=== PATIENT | female | born 1990 | race Caucasian/White ===

== ENCOUNTER 2024-06-13 10:59 | Inpatient (IN) | payer OTHER, SELFPAY ==
[2024-06-13 11:10] VITALS: BP 136/85; BMI 24.5
[2024-06-13] MEDS: LR 1000 IV (11:42)
[2024-06-13] MEDS: PENICILLIN 110 UNITS IV (11:49)
[2024-06-13] MEDS: FENTANYL/BUPIVACAINE 100 EPIDURAL (11:51)
[2024-06-13] MEDS: SUBLIMAZE 100 MCG EPIDURAL (11:51)
[2024-06-13 13:33] LABS: % Basophils 0.3 % (0-2); % Eosinophils 0.2 % (0-6); % Immature Granulocytes 0.5 % (0-0.5); % Lymphocytes 9.5 % (20.5-51.1); % Monocytes 6.8 % (1.7-9.3); % Neutrophils 82.7 % (42.2-75.2); Absolute Immature Granulocytes 0.1 10^3/uL (0-0.05); Absolute Lymphocytes 1.3 10^3/uL (1.2-3.4); Absolute Monocytes 0.9 10^3/uL (0.1-0.6); Absolute Neutrophils 10.9 10^3/uL (1.4-6.5); Hematocrit 34.1 % (37.0-47.0); Hemoglobin 11.1 g/dL (12.0-16.0); Mean Corp Hgb Conc. 32.6 g/dL (33.0-37.0); Mean Corpuscular Hgb 27.4 pg (27.0-31.0); Mean Corpuscular Volume 84.2 fL (81.0-99.0); Mean Platelet Volume 11.1 fL (7.4-10.4); Nucleated Red Blood Cells % 0 %; Platelet Count 345 10^3/uL (130-400); Red Blood Cell Count 4.05 10^6/uL (4.20-5.40); Red Cell Dist. Width 13.5 % (11.5-14.5); White Blood Cell Count 13.2 10^3/uL (4.8-10.8)
[2024-06-13] MEDS: TYLENOL 650 MG PO ×2 (15:31→21:37)
[2024-06-13] MEDS: MOTRIN 600 MG PO ×2 (15:31→21:37)
[2024-06-14] MEDS: TYLENOL 650 MG PO ×4 (05:04→23:33)
[2024-06-14] MEDS: MOTRIN 600 MG PO ×4 (05:04→23:33)
[2024-06-14 05:21] LABS: Hematocrit 32.2 % (37.0-47.0); Hemoglobin 10.4 g/dL (12.0-16.0)
[2024-06-14] MEDS: RITALIN 20 MG PO (07:35)
[2024-06-14] MEDS: PRENATAL PLUS 1 TABLET PO (07:35)
[2024-06-14] MEDS: SENOKOT-S 1 TABLET PO (11:05)
[2024-06-14 14:57] LABS: Syphilis/T. pallidum Ab Reflex Negative (Negative)
[2024-06-15] MEDS: TYLENOL 650 MG PO (05:44)
[2024-06-15] MEDS: MOTRIN 600 MG PO (05:45)
[2024-06-15] MEDS: RITALIN 20 MG PO (08:47)
[2024-06-15] MEDS: PRENATAL PLUS 1 TABLET PO (08:47)
== END 2024-06-15 12:12 | disposition home or self-care (01) | DRG 807 ==
LOC: LDRP 10:59
PROVIDERS: Student in an Organized Health Care Education/Training Program; ADMITTING PHYSICIAN Obstetrics & Gynecology; FAMILY PHYSICIAN Family Medicine
PROC: 10E0XZZ Delivery of Products of Conception, External Approach (ICD-10-PCS; 2024-06-13)
DX: O99.824 Streptococcus B carrier state complicating childbirth (principal); Z37.0 Single live birth; O99.344 Other mental disorders complicating childbirth; F90.9 Attention-deficit hyperactivity disorder, unspecified type; Z3A.39 39 weeks gestation of pregnancy
CPT/HCPCS: 36415; 85014; 85018; 85025; 86780; 86850; 86900; 86901

== ENCOUNTER 2024-11-29 13:43 | Emergency (ER) | payer OTHER, SELFPAY ==
[2024-11-29 13:45] VITALS: BP 121/87
[2024-11-29 13:59] LABS: Hematocrit 42.0 % (37.0-47.0); Hemoglobin 14.0 g/dL (12.0-16.0); Mean Corp Hgb Conc. 33.3 g/dL (33.0-37.0); Mean Corpuscular Volume 86.2 fL (81.0-99.0); Nucleated Red Blood Cells % 0 %; Platelet Count 305 10^3/uL (130-400); Red Cell Dist. Width 13.0 % (11.5-14.5)
[2024-11-29 14:17] LABS: HCG, Serum Qualitative Screen Negative
[2024-11-29 14:21] LABS: Blood Urea Nitrogen 7 mg/dl (7-17); Calcium 9.3 mg/dl (8.4-10.2); Carbon Dioxide 20 mmol/L (22-30); Chloride 107 mmol/L (98-107); Glucose 97 mg/dl (70-99); Sodium 134 mmol/L (135-145); eGFR > 60.00
--- NOTE | 2024-11-29 16:23 | ED.GENMED ---
History of Present Illness
General
Chief Complaint: Headache
Source: patient
Exam Limitations: none
Time Seen by Provider: 11/29/24 16:05
Nursing documentation reviewed up to this point in time: agreed with
History of Present Illness
History of Present Illness:
Patient to ED with report of sudden onset of headache, dizziness, disorientation. States she was walking when symptoms occurred. Took tylenol without relief of headache. Denies fever/chills, recent illness. To ED accompanied by spouse. Started
prozac 5 days ago. No issues until today
Past History
Past History
ED Past Medical History: Psychiatric (ADHD, anxiety, depression)
Review of Systems
Review of Systems
Allergies reviewed?: Yes
All Other Systems: ROS reviewed and negative except as documented in HPI and ROS
Constitutional: Reports no symptoms
EENT: Reports no symptoms
Respiratory: Reports no symptoms
Cardiac: Reports no symptoms
ABD/GI: Reports no symptoms
: Reports no symptoms
Musculoskeletal: Reports no symptoms
Skin: Reports no symptoms
Neurological: Reports dizzy and headache
Psychiatric: Reports no symptoms
Phy Exam
General Physical Exam
General Presentation: well appearing and no apparent distress
General age: appears stated age
General Skin: warm and dry
General Habitus: normal
Eye Exam
Eye Exam: PERRL, EOMI, conjunctiva normal and globe normal
Cardiovascular Exam
Cardiovascular Exam: regular rate/rhythm
Pulmonary Exam
Pulmonary Exam: no respiratory distress and chest non tender
Neurological Exam
Neurological Exam: alert, oriented x3, CN II-XII intact, no motor deficits, no sensory deficits and speech normal
Musculoskeletal Exam
Musculoskeletal Exam: full ROM and neuro vasc intact
Skin Exam
Skin Exam: normal color, warm/dry and no rash
Psychiatric Exam
Psychiatric Exam: normal mood/affect
Course
Orders/Labs/Results
Orders:
Orders
11/29/24 13:50
Test Result ONCE
11/29/24 13:53
Basic Metabolic Panel Urgent
Complete Blood Count/With Diff Urgent
Erythrocyte Sed Rate Urgent
Comment: ADD ON
HCG, Serum Qualitative Screen Urgent
11/29/24 16:16
CT Head W/o Iv Contrast Urgent
Comment:
Reason For Exam: atypical headache
11/29/24 16:23
Add On- LAB Urgent
Tests Added?: sed rate, crp, cpk
11/29/24 17:09
C-Reactive Protein Urgent
Creatine Phosphokinase Urgent
Urinalysis Reflex To Culture Urgent
Date Specimen was Collected: 11/29/24
Time Specimen was Collected: 17:01
11/29/24 17:47
Ketorolac [Toradol] 30 mg IV NOW STA
11/29/24 17:48
0.9% Sodium Chloride 500 ml [Nss] 500 ml IV BOLUS
Abnormal Lab Results
11/29/24 11/29/24
13:53 17:09
WBC 11.7 H 10^3/uL
(4.8-10.8)
Abs Immat Gran (auto) 0.1 H 10^3/uL
(0-0.05)
Absolute Neuts (auto) 9.2 H 10^3/uL
(1.4-6.5)
Absolute Monos (auto) 0.7 H 10^3/uL
(0.1-0.6)
Neutrophils % 78.7 H %
(42.2-75.2)
Lymphocytes % 13.6 L %
(20.5-51.1)
Sodium 134 L mmol/L
(135-145)
Carbon Dioxide 20 L mmol/L
(22-30)
Creatine Kinase 333 H U/L
(30-135)
11/29/24 13:53
11/29/24 13:53
Vital Signs
Initial and Last Documented VS:
Initial Vital Signs
Temp Pulse Resp BP Pulse Ox
97.8 F 101 16 121/87 99
11/29/24 13:45 11/29/24 13:45 11/29/24 13:45 11/29/24 13:45 11/29/24 13:45
Last Documented Vital Signs
Temp Pulse Resp BP Pulse Ox
99.1 F 74 17 118/80 100
11/29/24 17:58 11/29/24 18:34 11/29/24 18:34 11/29/24 18:34 11/29/24 18:34
*Radiology
Radiology exam reviewed: radiology read reviewed
*Pulse Oximetry
SaO2: 99
Oxygen Mode of Delivery: Room air
Patient hypoxic: no
*Critical Care Note
Total Time (30-74mins, 75-104mins- exclusive of procedures): Not Applicable
Update Note
Update Note:
Patient to ED [facility] report of sudden onset of headache, dizziness, weakness while walking to day. VSS, she remains febrile. Labs reviewed, no concerning findings. Head CT neg for acute findings. Given IVF, toradol in ED. SHe reports feeling much
better. SHe is currently taking prozac 20mg daily. Started 5 days ago. No issues until today. DOubtful for seratonin syndrome. Her son has been diagnosed with a viral illness and this seems more likely the cause of her symptoms. However, she
has been instructed to follow up ith her PCP in AM regardng her symptoms today and guidance moving forward with PRozac. SHe is agreeable to plan
ED Attending Note
-
Portions of this chart may have been created with voice recognition software.� Occasional wrong word or��sound alike� substitutions may have occurred due to the inherent limitations of voice recognition software.
Discharge Plan
Departure
Patient Disposition: Home (Routine Discharge)
Date of Disposition: 11/29/24
Time of Disposition: 18:35
Patient with high blood pressure during this ER visit?: No
Condition: Good
Covid-19: Not Applicable
Discharge Problem:
Headache
Instructions: Headache, Adult (DC)
Prescriptions:
No Action
dextroamphetamine-amphetamine [Adderall] 20 mg Tablet
20 mg PO DAILY
prenat.vits,neeta,igb-vahi-yurvs Tablet
1 tab PO DAILY
sennosides-docusate sodium 8.6-50 mg Tablet
1 tab PO DAILYPRN PRN (Reason: constipation) Qty: 0 0RF
ibuprofen 600 mg Tablet
600 mg PO Q6HPRN PRN (Reason: moderate pain/cramps) Qty: 30 0RF
calcium carbonate [Calcium Antacid] 200 mg calcium (500 mg) Tablet,Chewable
400 mg PO Q6HPRN PRN (Reason: indigestion) Qty: 0 0RF
acetaminophen 325 mg Tablet
650 mg PO Q4HPRN PRN (Reason: mild pain) Qty: 0 0RF
Referrals:
Curt Cerrato DO [Family Provider, Family Practice]
Activity Restrictions/Additional Instructions:
Please follow up with your psychiatrist in the AM regarding Prozac and your symptoms.
Interventions
Interventions:
*Risk Screen - Suicide Last Done: 11/29/24 13:45
*General Assessment Last Done: 11/29/24 13:45
*Neglect/Abuse Screening Last Done: 11/29/24 16:59
*ED- Fall Risk Assessment Last Done: 11/29/24 16:59
*ED COVID-19 Vaccine History Last Done: 11/29/24 16:59
*ED Influenza Vaccine History Last Done: 11/29/24 16:59
*Nursing Disposition Last Done: 11/29/24 18:44
ED- Neurological Assessment Last Done: 11/29/24 17:00
Discharge Date and Time
Discharge Date/Time: 11/29/24 18:45
Print Language: ARABIC
[2024-11-29 16:59] VITALS: BP 116/79; BMI 18.3
[2024-11-29 17:19] LABS: Urine Character Clear (Clear)
[2024-11-29 17:36] LABS: C-Reactive Protein < 5.00 mg/L (0.0-10.00)
[2024-11-29] MEDS: NSS 500 IV (17:55)
[2024-11-29] MEDS: TORADOL 30 MG IV (18:00)
[2024-11-29 18:34] VITALS: BP 118/80
== END 2024-11-29 18:45 | disposition home or self-care (01) ==
LOC: EMR 13:43
PROVIDERS: Nurse Practitioner; Student in an Organized Health Care Education/Training Program; EMERGENCY PHYSICIAN Emergency Medicine; FAMILY PHYSICIAN Family Medicine
DX: R51.9 Headache, unspecified (principal); F41.9 Anxiety disorder, unspecified; F32.A Depression, unspecified; F90.9 Attention-deficit hyperactivity disorder, unspecified type
CPT/HCPCS: 99284; 96374; 96361; 70450; 80048; 81003; 82550; 84703; 85025; 85652; 86140

== ENCOUNTER 2024-12-21 08:35 | Emergency (ER) | payer OTHER, SELFPAY ==
[2024-12-21 08:36] VITALS: BP 134/82
--- NOTE | 2024-12-21 10:52 | ED.GENMED ---
History of Present Illness
General
Chief Complaint: Anxiety
Time Seen by Provider: 12/21/24 10:52
History of Present Illness
History of Present Illness:
FOCUSED PAST MEDICAL HISTORY
- depression,
REVIEW OF OLD RECORDS
- The patient delivered here at [facility] May [address] Bolton
- CAT scan of head 11/29/2024 was unremarkable
Note:
CHIEF COMPLAINT(S)
Anxiety and depression.
HISTORY OF PRESENT ILLNESS
The patient, who gave in May 2024 at [facility], reports experiencing increasing anxiety and depression since that time. She was initially started on Lexapro but was switched to Zoloft due to lack of improvement and adverse feelings,
however, she never discontinued them on her own. Subsequently, she consulted a psychiatrist who prescribed Prozac about a month ago, which she also stopped two days ago because it did not alleviate her symptoms. Her psychiatrist recently called in
Clonazepam, but she has not yet started taking it. The patient has been consuming alcohol, specifically a bottle of wine a day and some bourbon the previous night, to manage her anxiety, but she does not perceive her alcohol use as a significant
issue. She expresses a desire to abstain from alcohol, but feels it is currently necessary to cope with overwhelming anxiety. An electrocardiogram has been planned, and a psychiatric evaluation is being requested in the emergency department.
PAST MEDICAL AND SURGICAL HISTORY
Gave in May 2024 at [facility].
SOCIAL DETERMINANTS AFFECTING HEALTH
The patient is experiencing significant anxiety and is using alcohol as a form of self-medication to manage her anxiety symptoms.
REVIEW OF SYSTEMS
- Psychological: Anxiety, depression, dissatisfaction with current psychotropic medications.
PHYSICAL EXAM
General: Alert, no acute distress.
Skin: Warm, dry.
Head: Normocephalic, atraumatic.
Neck: Supple, trachea midline.
Eye Ears, Nose, Mouth and Throat: Oral mucosa moist.
Cardiovascular: Normal peripheral perfusion, No edema.
Respiratory: Respirations are non-labored.
Gastrointestinal: Abdomen nondistended
Back: Normal range of motion, Normal alignment.
Musculoskeletal: Normal range of motion, normal strength.
Neurological: Alert and oriented to person, place, time, and situation, No focal neurological deficit observed.
Psychiatric: Tearful and upset at times, somewhat of a flat affect
PLAN
- Obtain an electrocardiogram.
- Request psychiatric evaluation in the emergency department.
- Discuss and address alcohol consumption as a factor in managing anxiety.
DIFFERENTIAL DIAGNOSIS
The Differential Diagnosis includes, in no particular order and is not limited to:
1. Generalized Anxiety Disorder
2. Depression
3. Major Depressive Disorder
4. Adjustment Disorder with Anxiety
5. Substance-Induced Mood Disorder
6. Panic Disorder
7. Bipolar Disorder
8. Social Anxiety Disorder
9. Obsessive-Compulsive Disorder
10. Alcohol Use Disorder
EKG
- Sinus 84, left axis deviation, nonspecific ST abnormality
LABS
-
UPDATE
- I have asked Dr. Conner for consultation
SUMMARY OF ENCOUNTER
The patient, a 34-year-old female, presented to the emergency department with complaints of increasing anxiety and depression following childbirth in May 2024. Despite previously trying various medications (Lexapro, sertraline, and fluoxetine),
she has not found relief. The psychiatrist recommended a low-dose prescription of alprazolam as a temporary substitute for her current use of alcohol to manage anxiety. The physician advised against regular use of alprazolam to prevent dependency,
suggesting it only for severe anxiety episodes. The patient expressed a desire to abstain from alcohol but feels overwhelmed by anxiety.
PLAN
- Obtain an electrocardiogram.
- Request psychiatric evaluation in the emergency department.
- Discuss and address alcohol consumption as a factor in managing anxiety.
- Educate the patient on the potential dependency with regular use of alprazolam and advice against substituting it for alcohol consistently.
PATIENT EDUCATION AND COUNSELING
The patient was educated on the risks associated with regular use of alprazolam, as it can become addictive similar to alcohol. Emphasis was placed on using it only during severe anxiety episodes to avoid dependency.
MEDICATION RECONCILIATION
- Alprazolam was prescribed at a low dose, to be used sparingly for severe anxiety episodes.
MEDICAL DECISION MAKING
- Number and Complexity of Problems Addressed: Chronic conditions affecting care [ Depression] and DDx list includes: Generalized Anxiety Disorder, Depression, Major Depressive Disorder, Adjustment Disorder with Anxiety,
Substance-Induced Mood Disorder, Panic Disorder, Bipolar Disorder, Social Anxiety Disorder, Obsessive-Compulsive Disorder, Alcohol Use Disorder.
- Data:
Category 1
- No specific labs or imaging ordered during this visit.
Category 3
- Discussion of management with the patients psychiatrist regarding current medication plan and usage of alprazolam.
- Risk:
- Prescription drug management with alprazolam is initiated with clear instructions to mitigate the risk of dependency by limiting use.
DIAGNOSIS
1. Depression - F53.0
2. Generalized Anxiety Disorder - F41.1
3. Alcohol Use Disorder - F10.20
Dr. Conner recommended Effexor 37.5 mg daily and as needed Xanax
Past History
Past History
ED Past Medical History: Psychiatric (ADHD, anxiety, depression)
Phy Exam
Physical Exam
Physical Exam:
See HPI
Course
Orders/Labs/Results
Orders:
Orders
12/21/24 11:14
PSYCHIATRY CONSULT Urgent
Consulting Provider: Adrian Conner
Was physician already notified: Yes
12/21/24 11:15
Electrocardiogram (*1) Urgent
Reason for Study: Chest Pain
EKG- Treatment ONCE
Vital Signs
Initial and Last Documented VS:
Initial Vital Signs
Temp Pulse Resp BP Pulse Ox
36.7 C 110 20 134/82 95
12/21/24 08:36 12/21/24 08:36 12/21/24 08:36 12/21/24 08:36 12/21/24 08:36
Last Documented Vital Signs
Temp Pulse Resp BP Pulse Ox
36.7 C 110 20 134/82 95
12/21/24 08:36 12/21/24 08:36 12/21/24 08:36 12/21/24 08:36 12/21/24 10:53
*Pulse Oximetry
SaO2: 95
Oxygen Mode of Delivery: Room air
Patient hypoxic: no
*Critical Care Note
Total Time (30-74mins, 75-104mins- exclusive of procedures): Not Applicable
ED Attending Note
-
Portions of this chart may have been created with voice recognition software.� Occasional wrong word or��sound alike� substitutions may have occurred due to the inherent limitations of voice recognition software.
Discharge Plan
Departure
Patient Disposition: Home (Routine Discharge)
Date of Disposition: 12/21/24
Time of Disposition: 12:55
Patient with high blood pressure during this ER visit?: Yes
Discharge Problem:
Anxiety
Instructions: Depression, Adult (DC), Anxiety, Adult (DC), BLOOD PRESSURE
Prescriptions:
New
alprazolam [Xanax] 0.25 mg tablet
0.25 - 0.5 mg PO TID PRN (Reason: anxiety) Qty: 20 0RF
venlafaxine [Effexor XR] 37.5 mg capsule,extended release 24hr
37.5 mg PO DAILY Qty: 30 0RF
No Action
dextroamphetamine-amphetamine [Adderall] 20 mg Tablet
20 mg PO DAILY
prenat.vits,neeta,rhv-ljtm-rfvsn Tablet
1 tab PO DAILY
sennosides-docusate sodium 8.6-50 mg Tablet
1 tab PO DAILYPRN PRN (Reason: constipation) Qty: 0 0RF
ibuprofen 600 mg Tablet
600 mg PO Q6HPRN PRN (Reason: moderate pain/cramps) Qty: 30 0RF
calcium carbonate [Calcium Antacid] 200 mg calcium (500 mg) Tablet,Chewable
400 mg PO Q6HPRN PRN (Reason: indigestion) Qty: 0 0RF
acetaminophen 325 mg Tablet
650 mg PO Q4HPRN PRN (Reason: mild pain) Qty: 0 0RF
Referrals:
Waleska Wells CRNP [Family Provider, General]
Activity Restrictions/Additional Instructions:
Try to limit use of Xanax as it has high addiction potential. Return here if worse or other concerns. Dr. Conner recommends that we give you a prescription for Effexor 37.5 mg daily. Follow-up with your usual psychiatrist.
Interventions
Interventions:
*Risk Screen - Suicide Last Done: 12/21/24 08:36
*General Assessment Last Done: 12/21/24 11:18
*ED- Fall Risk Assessment Last Done: 12/21/24 11:18
*ED COVID-19 Vaccine History Last Done: 12/21/24 11:18
*ED Influenza Vaccine History Last Done: 12/21/24 11:18
ED-Psychological Assessment Last Done: 12/21/24 11:18
Discharge Date and Time
Print Language: TURKMEN
[2024-12-21 11:18] VITALS: BMI 17.0
--- NOTE | 2024-12-22 09:13 | CS.PSYCHR ---
Consult Summary - Psychiatry
-
late entry (unable to access chart yesterday): pt seen by me yesterday in consultation due to serious anxiety/depression now using alcohol to help quell anxiety
34 yo woan 6 months post , has had anxiety and depression steadily worsening since August (gave in May.) Started on zoloft by ob at that time, got to 50 mg but did not find it helpful and tought it was making her nauseated. Now seeing
psychiatrist, on proza 20 mg then 40 mg daily without benefit. Has started drinking alcohol to excess to help with distressing feelings, has been hiding this from . Called psychiatrist (Wil Saucedo) he called in klonopin which pt never
picked up, called him again today and recommended ED.
Pt in distress, tearful, states she fears her children will be taken away from her for being a bad mother, denies thoughts of suicide but does not know what she can do, cannot stand the feeling in her chest. Says is very supportive, as is
father (though he is in [place]) and children are in daycare but just cannot stand how she feels.
Has history of seeking outpatient therapy when found she was with first son (now 2) did not find helpful. Had lexapro at that time. No problems with post anything after that delivery.
Has been diagnosed with ADHD, on adderall 20 mg. Often runs out of script before it is time.
No significant medical illness.
born and raised in [place], attended all [employer], then [employer]. Downplays amount she has been drinking until I mention what told me (I interviewed him separately.)Works [employer] in [place], is in
cur[employer]. Travels a lot.
Oldest of three girls, two years apart. Second is doing great, youngest has had substance use disorder problems, just moved back in with their mother.
Mother is distant, not much support. Has only seen her only grandchild once over the past year, even though mother works at [employer] right next to patient's home.
Parents and after youngest child went away to school. Father now in relationship with another woman, very different from pt's mother, much more emotional, clingy. They get along but have had a conflict over what pt's children
should call her (have been calling her by her first name, which father's friend thinks is disrespectful, would prefer 'Eugenia'--her name is Elisa) Pt resists this, feels controlled.
Has long history of being very controlling herself, has been told she is OCD. Must shower twice per day, or else begins to think something bad will happen. Many checking rituals.
On exam is very tearful, thin (can't eat) neatly groomed/dressed. Denies suicidal thoughts, but also repeatedly states she worries she is a bad mother and that her children will be taken away. No other signs of psychosis, denies any thoughts of
harming children except by not being there for them. No cognitive impairment, insight/judgment fair
Met with , supportive, one of six children, his siblings all have young children and cannot be of too much help (one maybe.) Plans to stick by her no matter what.
Spoke with psychiatrist, whom I know well.
Will change to venlafaxine, add xanax which will control. Dr saucedo will see her Thursday.
== END 2024-12-21 13:11 | disposition home or self-care (01) ==
LOC: EMR 08:35
PROVIDERS: CONSULT PHYSICIAN Psychiatry & Neurology Psychiatry; EMERGENCY PHYSICIAN Emergency Medicine; FAMILY PHYSICIAN Nurse Practitioner Adult Health
DX: F41.9 Anxiety disorder, unspecified (principal); R03.0 Elevated blood-pressure reading, without diagnosis of hypertension; F32.A Depression, unspecified; F90.9 Attention-deficit hyperactivity disorder, unspecified type; T43.226A Underdosing of selective serotonin reuptake inhibitors, initial encounter; Z91.128 Patient's intentional underdosing of medication regimen for other reason
CPT/HCPCS: 99283; 93005